=== PATIENT | female | born 1970 | race Caucasian/White ===

== ENCOUNTER 2017-04-03 12:21 | Emergency (ER) | payer OTHER ==
[~2017-04-03] VITALS: Ht 167.6 cm; Wt 98.0 kg
--- NOTE | ~2017-04-03 | CR63 ---
[facility] A Service of [facility] & [facility] RADIOLOGY TEXT RESULTS PATIENT: ZOE YUAN LOCATION: [facility] : 72 UNIT #: [id number] AGE: [address]: America Hardin SEX: F ORDER DR: [id number] [facility] [address] [place], [place] [address] [id number] E MR#: [id number] Acc #: [id number] NAME: ZOE YUAN : 1970 SEX: F STUDY DATE/TIME: 04/03/2017 UNIT: [facility] ROOM: STUDY DESCRIPTION: CR Chest 2 View Attending Physician: America Hardin P.A.-C. Ordering Physician: America Hardin P.A.-C. Primary Care Physician: Genet Bermudez A.P.R.N. MEDICAL IMAGING REPORT This report is preliminary unless electronic signature is present EXAM Chest 2 views 04/03/2017 1318 hours HISTORY 46-year-old woman with 2-month history of upper right back pain when breathing, worsening over the past 24 hours. No history of trauma. COMPARISON 11/09/2012. FINDINGS 2 PA views and a lateral view demonstrate normal cardiac, mediastinal and hilar contours. The lungs are well inflated and clear of acute densities. Benign calcified granulomata are unchanged from 2012. There are no pleural effusion, pneumothorax or bone lesions seen. IMPRESSION No acute cardiopulmonary findings. Stable benign calcified granulomatous changes. There are no pleural effusion, pneumothorax or bone lesions seen. Dictated by... Ana Maria Kendall M.D. THIS IS AN ELECTRONICALLY VERIFIED REPORT Ana Maria Kendall M.D. at 04/04/2017 9:11 AM ESTRELLA/audrey TD: 04/03/2017 23:10 JOB #: [id number] MEDICAL IMAGING REPORT Page 1 of 1 COPY
[~2017-04-03 12:21] MED LIST: ALDACTONE25 MG PO; AMBIEN10 MG PO; AMITRYPTYLINE PO; CATAFLAM50 MG PO; COUMADIN PO; ERYTHROMYCIN O3.5 GM OS; HCTZ PO; HYDROCHLOROTHIA25 MG PO; HYDROCODONE-APA1 T30 PO; HYDROCODONE-APA1 T51 PO; IBUPROFEN PO; KEFLEX PO; LEVOTHROID100 MC1; LEVOTHROID150 MCG PO; LEVOTHYROXINE150 MC1 PO; LIPITOR PO; LORTAB 10/500 T1 TAB PO; LOVENOX SUBQ; MOBIC15 MG PO; PERCOCET5/325 PO; PHENTERMINE H37.5 M1 PO; PRAVACHOL PO; PROZAC PO; VOLTAREN75 MG PO; XANAX; [UNRECOGNIZED DRUG - REMARK]
[2017-04-03 13:21] LABS: BASOPHIL% 0.5 % (0-2.5); EOSINOPHIL# 0.1 X10e3 (0-0.7); EOSINOPHIL% 1.3 % (0.0-7.0); HEMATOCRIT 39.9 % (35.0-45.0); HEMOGLOBIN 13.3 gm/dL (12.0-16.0); LYMPHOCYTE% 33.1 % (17.0-45.0); MEAN CELL VOLUME 85.6 FL (83-96); MEAN CORPUSCULAR HEMOGLOBIN 28.6 PG (28-34); MEAN CORPUSCULAR HGB CONC 33.5 g/dL (30-36); MEAN PLATELET VOLUME 8.5 FL (6.5-11.5); MONOCYTE# 0.6 X10e3 (0-1.0); MONOCYTE% 6.1 % (3.0-12.0); NEUTROPHIL# 5.3 X10e3 (1.5-7.1); PLATELET COUNT 263 X10e3 (140-420); RED BLOOD COUNT 4.66 X10e (3.90-5.30)
[2017-04-03 13:23] LABS: DIFF IND NO
[2017-04-03 13:44] LABS: BUN/CREATININE RATIO 15.71; CREATININE SERUM 0.7 mg/dL (0.6-1.4); GLOM FILT RATE Estimated 104.6 mL/min (>60); POTASSIUM 4.4 mmol/L (3.5-5.1)
== END 2017-04-03 14:07 | disposition home or self-care (01) ==
LOC: CFTX 12:21 → CED 12:21 → CFTX 13:55
PROVIDERS: Physician Assistant
DX: M25.511 Pain in right shoulder (principal); I10 Essential (primary) hypertension; E11.9 Type 2 diabetes mellitus without complications; E03.9 Hypothyroidism, unspecified; F32.9 Major depressive disorder, single episode, unspecified; F41.9 Anxiety disorder, unspecified; F17.210 Nicotine dependence, cigarettes, uncomplicated; Z79.899 Other long term (current) drug therapy
CPT/HCPCS: 36415; 71020; 80048; 85025; 85379; 99284